=== PATIENT | male | born 1995 ===

== ENCOUNTER 2018-05-15 06:11 | Day surgery (SDC) | payer BC ==
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
[~2018-05-15 06:11] MED LIST: Buffered Lidocaine 0.9% SYRIN* 5 ML/SYR SYRINGE INTRADERM ONE; Dexamethasone IV* 4 MG/ML 1 ML (4 MG) IV SLOW PU ONE; Famotidine IV* 10 MG/ML 2 ML (20 mg) IV ONE
[2018-05-15] MEDS ORDERED: cefTRIAXone(*) 2 GM ADDV.VIAL IVPB ONE (06:45)
[2018-05-15] MEDS ORDERED: Famotidine IV* 10 MG/ML 2 ML (20 mg) ONE (06:45)
[2018-05-15] MEDS ORDERED: Dexamethasone IV* 4 MG/ML 1 ML (4 MG) ONE (06:45)
[2018-05-15] MEDS ORDERED: Lidocaine 2% JELLY* 6 ML JELLY TOPICAL ONE (07:14)
[2018-05-15] MEDS ORDERED: Lidocaine 2% JELLY* 20 ML (for OR use) ONE (07:14)
[2018-05-15] MEDS ORDERED: fentaNYL* 50 MCG/ML 2 ML VIAL (100 MCG VIAL) ONE ×2 (07:28→08:11)
[2018-05-15] MEDS ORDERED: Propofol* 10 MG/ML 20 ML BTL IV PUSH ONE (07:28)
[2018-05-15] MEDS ORDERED: Lidocaine 2% PF * 5 ML VIAL ONE (07:28)
[2018-05-15] MEDS ORDERED: Ketorolac INJ* 30 MG/ML 1 ML VIAL ONE (07:51)
[2018-05-15] MEDS ORDERED: Ondansetron INJ* 2 MG/ML VIAL ONE (07:51)
[2018-05-15] MEDS ORDERED: DiMENhydriNATE IV* 50 MG/ML VIAL IV PUSH PRN (07:53)
[2018-05-15] MEDS ORDERED: fentaNYL* 50 MCG/ML 2 ML VIAL (100 MCG VIAL) IV PRN (07:53)
[2018-05-15] MEDS ORDERED: Naloxone* 0.4 MG/ML 1 ML VIAL IV PRN (07:53)
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
[2018-05-15 11:17] VITALS: BP 127/65
== END 2018-05-15 11:20 | disposition home or self-care (01) ==
LOC: OR 06:11
PROVIDERS: ATTEND Urology
DX: N35.011 Post-traumatic bulbous urethral stricture (principal); J30.89 Other allergic rhinitis
CPT/HCPCS: J0696; J1100; J1885; J2405; J2704; J3010